=== PATIENT | female | born 2000 | race Caucasian/White ===

== ENCOUNTER → 2020-01-30 08:29 | Outpatient (BNVA) | payer MEDICAID, SELFPAY | PROVIDERS: Family Provider Pediatrics Adolescent Medicine; Visit Provider Nurse Practitioner Women's Health | DX: O36.80X0 Pregnancy with inconclusive fetal viability, not applicable or unspecified; E05.00 Thyrotoxicosis with diffuse goiter without thyrotoxic crisis or storm; N92.6 Irregular menstruation, unspecified; Z01.419 Encounter for gynecological examination (general) (routine) without abnormal findings | CPT/HCPCS: 81025 ==

== ENCOUNTER → 2020-02-01 16:15 | Outpatient (BNVA) | payer MEDICAID, SELFPAY | PROVIDERS: Family Provider Pediatrics Adolescent Medicine; Visit Provider Obstetrics & Gynecology | DX: O20.0 Threatened abortion (principal); O09.891 Supervision of other high risk pregnancies, first trimester; Z67.91 Unspecified blood type, Rh negative; Z3A.09 9 weeks gestation of pregnancy; O26.899 Other specified pregnancy related conditions, unspecified trimester | CPT/HCPCS: 86850; 86900 ==

== ENCOUNTER 2020-02-04 12:28 | Emergency (ER) | payer MEDICAID, SELFPAY ==
[2020-02-04 12:37] VITALS: BP 130/85; PULSE 133; RESP 18; TEMP 36.7; O2SAT 98
--- NOTE | 2020-02-04 12:45 | ED_ITS ---
HPI - General: Chief complaint: Vaginal Bleeding Stated complaint: 10 WEEKS PREG/BLEEDING Time Seen by Provider: 02/04/20 12:36 History of Present Illness: HPI Narrative: 19-year-old female at 10 weeks gestation presents complaining of vaginal bleeding. Patient was at [facility] on 02/03/2020 records were received from there she had a beta-hCG of 6997. She has [facility] a [facility] she had told me that they confirmed an intrauterine of room and look at her their notes they did a qualitative beta-hCG and a bedside ultrasound but did not have definitive conversation of intrauterine . She has been having regular bleeding although it has been decreased a little since she arrived here prior to arriving here she felt like it was actually getting a little worse. MD Complaint: vaginal bleeding Onset (ago): day(s) Pain Consistency: intermittent Location: pelvis Severity: moderate Quality: Cramping Relieving factors: none Exacerbating factors: none Vaginal discharge: none Vaginal bleeding: heavy care: followed by OB Associated symptoms: Deny dysuria, headache(s), malaise, nausea, rash, seizures, short of breath, syncope, vaginal discharge, visual changes, vomiting or weakness Review of Systems Const: Denies: malaise ENMT: Denies: throat pain, ear or mastoid pain, nasal discharge or nasal congestion Card: Denies: syncope Resp: Denies: dyspnea, productive cough or non-productive cough GI: Denies: nausea or vomiting : Denies: dysuria or vaginal discharge Skin/Breast: Denies: rash or pruritus Neuro: Denies: headache(s) PFSH ED PFSH: Medical History Anxiety with depression Graves disease No pertinent past medical history Denies: high blood pressure, diabetes, heart, lung, liver, kidney, bleeding problems, or clotting problems Tachycardia Surgical History No history of previous surgery Family History Denies family history of Colon cancer Ovarian cancer Diabetes Heart disease Hyperlipidemia Breast cancer Hypertension Uterine cancer Thyroid condition Stroke Social History Smoking and tobacco status: never smoked Alcohol intake: unknown Additional social history: - Tobacco Use: Denies current or past use Alcohol Use: Denies Drug Use: Denies Work/Study Status: Does not work or go to school Physical Exam Const: COMMON NORMALS: average body habitus, patient oriented x3 and alert GENERAL APPEARANCE: cooperative, comfortable, well kempt and well developed NUTRITIONAL APPEARANCE: obese ORIENTATION/CONSCIOUSNESS: Yes awake, Yes oriented to person and Yes oriented to place HENMT: COMMON NORMALS: normocephalic, atraumatic and EAC's normal HEAD & SCALP: normocephalic and atraumatic EXTERNAL AUDITORY CANAL: EAC's normal Eye: COMMON NORMALS: Equal, round and reactive pupils present, EOMs intact bilaterally, conjunctivae normal and no scleral icterus CONJUNCTIVA: Yes conjunctivae normal PUPIL: Yes Equal, round and reactive pupils present Neck/C-Spine: COMMON NORMALS: no meningeal signs Resp: COMMON NORMALS: normal respiratory effort, No retractions, No use of accessory muscles and clear to auscultation bilaterally AUSCULTATION: clear to auscultation bilaterally Cardio: COMMON NORMALS: regular rate and regular rhythm RATE: regular rate RHYTHM: regular rhythm HEART SOUNDS: no murmurs GI: COMMON NORMALS: Normal to inspection, nondistended, normoactive bowel sounds present, Soft to palpation and No hepatosplenomegaly present PALPATION: Yes Soft to palpation and Yes No hepatosplenomegaly present : COMMON NORMALS: Yes no CVA tenderness BLADDER/KIDNEY EXAM: Yes no CVA tenderness Back/Pelvis: COMMON NORMALS: no CVA tenderness LUMBAR SPINE/LOWER BACK: Yes normal to inspection Extremity: COMMON NORMALS: no clubbing, cyanosis or edema, no calf tenderness and no pedal edema Neuro: COMMON NORMALS: patient oriented x3 SENSORIUM/ORIENTATION: Yes alert, Yes oriented to person and Yes oriented to place MENINGEAL SIGNS: Yes no meningeal signs Psych: APPEARANCE: Yes well kempt Skin: COMMON NORMALS: no rashes or lesions noted and turgor normal GENERAL SKIN EXAM: no rashes or lesions noted and turgor normal Course Vital Signs: Vital signs: Vital Signs Temperature 98.0 F 02/04/20 12:37 Pulse Rate 100 02/04/20 16:01 Respiratory Rate 18 02/04/20 16:01 Blood Pressure 93/72 02/04/20 16:01 Pulse Oximetry 98 02/04/20 16:01 MDM - OB/Uterine Contractions MDM Narrative: Medical decision making narrative: Beta-hCG is decreasing substantially today from yesterday. Discussed ultrasound with radiology there is a significant amount of clot in the uterus no apparent POC nothing in the adnexa looks concerning for an ectopic. Will discharge patient home have her follow-up with her primary care doctor in the next few days if she has worsening bleeding return to the emergency room. She should have another beta-hCG by the end of the week. Lab Data: Labs: Lab Results 02/04/20 02/04/20 02/04/20 Range/Units 13:03 13:19 13:19 WBC 12.8 H (4.0-10.0) 10^3/ uL RBC 4.82 (4.1-5.3) 10^6/u L Hgb 13.5 (11.5-15.3) g/dL Hct 41.2 (37.0-47.0) % MCV 85.5 (81-99) fL MCH 28.0 (28.0-34.0) pg MCHC 32.8 (30.0-36.0) g/dL RDW 12.3 (12.1-15.1) % Plt Count 244 (130-400) 10^3/c mm MPV 10.8 H (7.4-10.4) fL Neut % (Auto) 84.4 % Lymph % (Auto) 9.9 % [place] % (Auto) 4.5 % Eos % (Auto) 0.5 % Baso % (Auto) 0.4 % Neut # (Auto) 10.79 H (1.8-7.7) 10^3/u L Lymph # (Auto) 1.3 (0.8-4.8) 10^3/u L [place] # (Auto) 0.6 (0.2-0.9) 10^3/u L Eos # (Auto) 0.1 (0.0-0.8) 10^3/u L Baso # (Auto) 0.1 (0.0-0.1) 10^3/u L Nucleated RBC % (a uto) 0 % Nucleated RBCs # 0.0 /100WBC Sodium 137 (136-145) mmol/L Potassium 4.1 (3.5-5.1) mmol/L Chloride 102 (98-107) mmol/L Carbon Dioxide 24 (22-29) mmol/L Anion Gap 15.1 (5-19) BUN 5 L (6-20) mg/dL Creatinine 0.7 (0.5-0.9) mg/dL GFR Calculation 105.6 (90-130) mL/min Glucose 104 (65-115) mg/dL Calculated Osmolal ity 280 L (285-295) mOsm/k g Calcium 9.7 (8.5-10.5) mg/dL Ser , Herminio i-Qnt 2274.00 mIU/mL Urine Color Red (Yellow) Urine Appearance Turbid (CLEAR) Urine pH 6.5 (5-7) Ur Specific Gravit y 1.010 (1.005-1.030) Urine Protein 3+ H (Negative) Urine Glucose (UA) Norm (Normal) Urine Ketones 1+ H (Negative) Urine Blood 3+ H (Negative) Urine Nitrate Negative (Negative) Urine Bilirubin Neg (NEGATIVE) Urine Urobilinogen 1 H (Negative) mg/dL Ur Leukocyte Betty ase 1+ H (Negative) Urine RBC Too numerous to c nt H (0-2) /hpf Urine WBC 5-10 H (0-5) /hpf Ur Squamous Epith Cells 0-4 H (0-5) Amorphous Sediment Not Reportable Urine Bacteria 2+ H (NONE) 02/04/20 Range/Units 14:25 WBC (4.0-10.0) 10^3/ uL RBC (4.1-5.3) 10^6/u L Hgb (11.5-15.3) g/dL Hct (37.0-47.0) % MCV (81-99) fL MCH (28.0-34.0) pg MCHC (30.0-36.0) g/dL RDW (12.1-15.1) % Plt Count (130-400) 10^3/c mm MPV (7.4-10.4) fL Neut % (Auto) % Lymph % (Auto) % [place] % (Auto) % Eos % (Auto) % Baso % (Auto) % Neut # (Auto) (1.8-7.7) 10^3/u L Lymph # (Auto) (0.8-4.8) 10^3/u L [place] # (Auto) (0.2-0.9) 10^3/u L Eos # (Auto) (0.0-0.8) 10^3/u L Baso # (Auto) (0.0-0.1) 10^3/u L Nucleated RBC % (a uto) % Nucleated RBCs # /100WBC Sodium (136-145) mmol/L Potassium (3.5-5.1) mmol/L Chloride (98-107) mmol/L Carbon Dioxide (22-29) mmol/L Anion Gap (5-19) BUN (6-20) mg/dL Creatinine (0.5-0.9) mg/dL GFR Calculation (90-130) mL/min Glucose (65-115) mg/dL Calculated Osmolal ity (285-295) mOsm/k g Calcium (8.5-10.5) mg/dL Ser , Herminio i-Qnt mIU/mL Urine Color Yellow (Yellow) Urine Appearance Clear (CLEAR) Urine pH 7 (5-7) Ur Specific Gravit y 1.000 L (1.005-1.030) Urine Protein Neg (Negative) Urine Glucose (UA) Norm (Normal) Urine Ketones Negative (Negative) Urine Blood Neg (Negative) Urine Nitrate Negative (Negative) Urine Bilirubin Neg (NEGATIVE) Urine Urobilinogen Norm (Negative) mg/dL Ur Leukocyte Betty ase Negative (Negative) Urine RBC (0-2) /hpf Urine WBC (0-5) /hpf Ur Squamous Epith Cells (0-5) Amorphous Sediment Urine Bacteria (NONE) Discharge Plan Discharge Patient Disposition: Home Clinical Impression: Incomplete Condition: Stable Prescriptions: New hydrocodone-acetaminophen 5-325 mg tablet 1 tab PO Q6H PRN (Reason: pain) Qty: 15 RF: 0 diclofenac sodium 75 mg tablet,delayed release (DR/EC) 75 mg PO Q12H PRN (Reason: pain) Qty: 20 RF: 0 Discharge Orders: Discharge Order (Routine); Ordered 02/04/20 Ordered By: Hector Anderson Referrals: Ozzie Banuelos MD [Physician] - Discharge Diet: Usual diet Discharge Activity: Increase activity as tolerated Activity Restrictions/Additional Instructions: Follow-up with Dr. Sanders towards the end of this week. Discharge Date/Time: 02/04/20 16:02 Coding Level of Care Code ED Dye Stand Loader for Tom Shafer
[2020-02-04 12:56] VITALS: BP 130/95; PULSE 100; RESP 16; O2SAT 97
[2020-02-04] MEDS: HYDROcodone-acetaminophen 5-325 mg Tablet 2 TAB PO (13:06)
--- NOTE | 2020-02-04 13:11 | PC.NURSE ---
Read and agree with assessment
[2020-02-04 13:30] LABS: Basophils # 0.1 10^3/uL (0.0-0.1); Basophils % 0.4 %; Eosinophils # 0.1 10^3/uL (0.0-0.8); Eosinophils % 0.5 %; Hematocrit 41.2 % (37.0-47.0); Hemoglobin 13.5 g/dL (11.5-15.3); Lymphocytes # 1.3 10^3/uL (0.8-4.8); Lymphocytes % 9.9 %; Mean Corpuscular HGB Conc 32.8 g/dL (30.0-36.0); Mean Corpuscular Volume 85.5 fL (81-99); Mean Platelet Volume 10.8 fL (7.4-10.4); Monocytes # 0.6 10^3/uL (0.2-0.9); Monocytes % 4.5 %; Neutrophils # 10.79 10^3/uL (1.8-7.7); Neutrophils % 84.4 %; Nucleated Red Blood Cells % 0 %; Platelet Count 244 10^3/cmm (130-400); Red Blood Count 4.82 10^6/uL (4.1-5.3); Red Cell Distribution Width 12.3 % (12.1-15.1); White Blood Count 12.8 10^3/uL (4.0-10.0)
[2020-02-04 14:02] LABS: Anion Gap 15.1 (5-19); Blood Urea Nitrogen 5 mg/dL (6-20); Calcium 9.7 mg/dL (8.5-10.5); Carbon Dioxide 24 mmol/L (22-29); Chloride 102 mmol/L (98-107); Glomerular Filtration Rate 105.6 mL/min (90-130); Glucose 104 mg/dL (65-115); Osmolality Calculated 280 mOsm/kg (285-295); Potassium 4.1 mmol/L (3.5-5.1); Sodium 137 mmol/L (136-145)
[2020-02-04 14:07] VITALS: BP 125/87; PULSE 93; RESP 17; O2SAT 95
[2020-02-04 14:19] LABS: Add Urine Microscopic? YES; Bilirubin Urine Neg (NEGATIVE); Blood Urine 3+ (Negative); Glucose Urine UA Norm (Normal); Ketones Urine 1+ (Negative); Leukocyte Esterase Urine 1+ (Negative); Nitrate Urine Negative (Negative); Protein Urine 3+ (Negative); Urine Appearance Turbid (CLEAR); Urine Color Red (Yellow); Urobilinogen Urine 1 mg/dL (Negative); pH Urine 6.5 (5-7)
[2020-02-04 14:21] LABS: Add Urine Culture? Yes; Bacteria Urine 2+; RBC Urine TOO NUMEROUS TO CNT /hpf (0-2); Squamous Epithelial Cell Urine 0-4 (0-5)
[2020-02-04 14:35] LABS: Add Urine Microscopic? NO
[2020-02-04 14:49] LABS: Bilirubin Urine Neg (NEGATIVE); Blood Urine Neg (Negative); Glucose Urine UA Norm (Normal); Ketones Urine Negative (Negative); Leukocyte Esterase Urine Negative (Negative); Nitrate Urine Negative (Negative); Protein Urine Neg (Negative); Urine Appearance Clear (CLEAR); Urine Color Yellow (Yellow); Urobilinogen Urine Norm (Negative); pH Urine 7 (5-7)
--- NOTE | 2020-02-04 14:57 | US_ITS ---
WS: [id number] TRANSABDOMINAL PELVIC ULTRASOUND HISTORY: confirm intrauterine COMPARISON: None available. Uterus: 11.2 cm x 4.2 cm x 6.6 cm. Enlarged heterogeneous uterus. Abnormal within the central uterus. Endometrium: Abnormal endometrial canal. There is thickened heterogeneous appearance within the endom etrium. There is also fluid along the lower endometrial canal. Endometrial thickness is measures up t o 4 cm. On several images there may be small cystic areas present. Neither ovary is definitely identified. No free fluid in the cul-de-sac. US/US pelvic complete* [id number] IMPRESSION: 1. Abnormal endometrium. No intrauterine gestation. 2. Markedly thickened endometrium with fluid along the lower endocervical canal . Correlate for possible gestational trophoblastic disease. Evaluate for marked ly elevated beta hCG level. Differential would include blood products from a sp ontaneous . Notified Hector Anderson DO at 02/04/2020 4:18 PM.
[2020-02-04 15:41] VITALS: BP 93/72; PULSE 74; RESP 20; O2SAT 94
[2020-02-04 16:01] VITALS: BP 93/72; PULSE 100; RESP 18; O2SAT 98
== END 2020-02-04 16:02 | disposition home or self-care (01) ==
PROVIDERS: Emergency Provider Family Medicine; PCP Pediatrics Adolescent Medicine
DX: O03.4 Incomplete spontaneous abortion without complication (principal); E05.00 Thyrotoxicosis with diffuse goiter without thyrotoxic crisis or storm
CPT/HCPCS: 12345; 76856; 80048; 81001; 81003; 84702; 85025; 87086; 99282; 99283

== ENCOUNTER → 2020-02-07 10:41 | Outpatient (BNVA) | payer MEDICAID, SELFPAY | PROVIDERS: PCP Pediatrics Adolescent Medicine; Visit Provider Obstetrics & Gynecology | DX: O03.4 Incomplete spontaneous abortion without complication (principal) | CPT/HCPCS: 84702 ==

== ENCOUNTER → 2020-02-15 10:56 | Outpatient (BNVA) | payer MEDICAID, SELFPAY | PROVIDERS: PCP Pediatrics Adolescent Medicine; Visit Provider Nurse Practitioner Family | DX: E05.00 Thyrotoxicosis with diffuse goiter without thyrotoxic crisis or storm (principal) | CPT/HCPCS: 36415; 80053; 80061; 81003; 82306; 83036; 83735; 84100; 84443; 84702; 85025 ==

== ENCOUNTER 2020-05-26 08:21 | Outpatient (CLI) | payer MEDICAID, SELFPAY ==
--- NOTE | 2020-05-26 08:27 | US_ITS ---
WS: [id number] EARLY OBSTETRICAL ULTRASOUND (<14 WEEKS). HISTORY: UNABLE TO HEAR HEART TONES COMPARISON: None available. Single intrauterine gestational sac is identified. Cardiac activity at 160 BPM. M[place]-rump length dimitri sures 1.5 cm which corresponds to a gestation of 7w6d. The yolk sac is normal size but the shape is s lightly irregular in the wall of the yolk sac is slightly thickened and asymmetric. No subchorionic h emorrhage. No free fluid. LEFT ovary measures 2.6 x 2.3 x 2.0 cm. LEFT ovary contains a corpus luteum of measuring 1. 7 x 1.10 cm. RIGHT ovary is normal. US/US OB <=14 wk fetus w transvag IMPRESSION: 1. Single intrauterine gestation of 7 weeks 6 days with an EDC of 01/06/2021. 2. Yolk sac is slightly irregular. Significance is uncertain at this time. 3. Normal cardiac activity.
== END 2020-05-26 08:22 | disposition home or self-care (01) ==
LOC: RAD 08:26
PROVIDERS: PCP Family Medicine; Visit Provider Family Medicine
DX: O36.8310 Maternal care for abnormalities of the fetal heart rate or rhythm, first trimester, not applicable or unspecified (principal); Z3A.01 Less than 8 weeks gestation of pregnancy
CPT/HCPCS: 76801; 76817

== ENCOUNTER → 2020-10-06 11:23 | Outpatient (BNVA) | payer BC, MEDICAID, SELFPAY | PROVIDERS: PCP Family Medicine; Visit Provider Nurse Practitioner Family | DX: J06.9 Acute upper respiratory infection, unspecified (principal); Z20.822 Contact with and (suspected) exposure to COVID-19 | CPT/HCPCS: 87635 ==

== ENCOUNTER → 2020-10-17 10:54 | Day surgery (SDC) | payer BC, MEDICAID, SELFPAY ==
[2020-10-17 13:30] VITALS: BP 130/88; PULSE 95; RESP 18; TEMP 36.5; O2SAT 100
[2020-10-17 13:43] VITALS: BP 130/88; RESP 18; TEMP 36.5; O2SAT 100
== END ==
PROVIDERS: PCP Family Medicine; Visit Provider Family Medicine
DX: O26.892 Other specified pregnancy related conditions, second trimester (principal); Z67.91 Unspecified blood type, Rh negative; Z3A.00 Weeks of gestation of pregnancy not specified
CPT/HCPCS: 36415; 36430; 86850; 86900; 90384

== ENCOUNTER → 2020-12-03 14:35 | Outpatient (BNVA) | payer BC, MEDICAID, SELFPAY | PROVIDERS: PCP Family Medicine; Visit Provider Nurse Practitioner Family | DX: Z20.2 Contact with and (suspected) exposure to infections with a predominantly sexual mode of transmission (principal); R05 Cough; Z20.822 Contact with and (suspected) exposure to COVID-19 | CPT/HCPCS: 87635 ==

== ENCOUNTER 2021-01-05 20:39 | Inpatient (IN) | payer BC, MEDICAID, SELFPAY ==
[2021-01-05] VITALS (10 sets, daily range): BP systolic 115–146; BP diastolic 73–84; PULSE 84–110; RESP 16–17; TEMP 36.9; BMI 25.8
[2021-01-05 21:34] LABS: Basophils # 0.1 10^3/uL (0.0-0.1); Basophils % 0.3 %; Eosinophils # 0.1 10^3/uL (0.0-0.8); Eosinophils % 0.5 %; Hematocrit 39.7 % (37.0-47.0); Hemoglobin 12.6 g/dL (11.5-15.3); Lymphocytes # 2.9 10^3/uL (0.8-4.8); Lymphocytes % 17.7 %; Mean Corpuscular HGB Conc 31.7 g/dL (30.0-36.0); Mean Corpuscular Hemoglobin 25.1 pg (28.0-34.0); Mean Corpuscular Volume 79.1 fL (81-99); Mean Platelet Volume 11.8 fL (7.4-10.4); Monocytes # 0.9 10^3/uL (0.2-0.9); Monocytes % 5.3 %; Neutrophils # 12.24 10^3/uL (1.8-7.7); Neutrophils % 75.8 %; Nucleated Red Blood Cells % 0 %; Platelet Count 278 10^3/cmm (130-400); Red Blood Count 5.02 10^6/uL (4.1-5.3); Red Cell Distribution Width 15.3 % (12.1-15.1); White Blood Count 16.1 10^3/uL (4.0-10.0)
[2021-01-05] MEDS: dextrose 5%-lactated ringers 1,000 ML 125 ML IV (21:40)
[2021-01-05] MEDS: ampicillin 2,000 MG in sodium chloride 0.9% (plus) 50 ML 100 MG IV (21:41)
[2021-01-05] MEDS: lactated ringers 1,000 ML 999 ML IV (22:44)
[2021-01-05] MEDS: fentaNYL 50 mcg/mL INJ 2mL IVP (23:59)
[2021-01-06] VITALS (86 sets, daily range): BP systolic 95–164; BP diastolic 55–104; PULSE 72–171; RESP 17; TEMP 35.9–36.3; O2SAT 84–100
--- NOTE | 2021-01-06 00:05 | ANES.PREANE2 ---
Pre-Anesthetic Assessment Pre-Anesthetic Assessment: Height/Weight: Height 1.73 m Weight 77.111 kg Temp Pulse Resp BP Pulse Ox 98.4 F 108 H 16 133/79 100 01/05/21 18:29 01/06/21 01:03 01/05/21 23:59 01/06/21 01:03 01/06/21 01:03 Preop Diagnosis: IUP Proposed Procedure: labor epidural Was Beta Claritza taken within 24 hours: N/A Was Clonidine taken within 24 hours: N/A Social: Social History: No alcohol and No tobacco Exam: Pre-Anes Outpt Exam: alert, oriented x 3, clear to auscultation bilaterally and regular rate & rhythm Airway: Submandibular: WNL Cervical ROM: WNL MP: 2 History/ROS: No significant history except as noted Pulmonary: Pulmonary: None reported CV/HEM: CV/HEM: None reported : : None reported Hepatic: Hepatic: None reported GI: GI: GERD Metabolic: Metabolic: None reported Musc/skel: Musc/skel: Lower Back Pain Neuropsych: Neuropsych: None reported Anesthetic Plan: ASA status: 1 Anesthesia: Anesthesia Evaluation Risk of > 500 ml blood loss (7ml/kg in children): No Meds/Allergies Current Medications: Current Medications Generic Name Dose Route Start Last Admin Trade Name Freq PRN Reason Stop Dose Admin Fentanyl 25 - 100 mcg 01/05/21 20:38 01/05/21 23:59 Fentanyl 50 Mcg/ Ml Inj 2ml IVP 25 mcg Q1H PRN Administration SEVERE PAIN Dextrose/Lactated Ringer's 1,000 mls @ 125 m ls/hr 01/05/21 20:38 01/05/21 21:40 Dextrose 5%-Lact ated Ringers IV 125 mls/hr .Q8H PRN Administration labor Lactated Ringer's 1,000 mls @ 999 m ls/hr 01/05/21 20:38 01/05/21 22:44 Lactated Ringers IV 999 mls/hr .Q1H1M PRN Administration Per L&D Rescitati on Protocol PFSH Anesthesia PFSH: Medical History (Updated 12/08/20 @ 22:24 by BILL Renteria) Anxiety with depression Cough Depression Graves disease Hypertension screen Lower respiratory infection Medication management Migraine No pertinent past medical history Denies: high blood pressure, diabetes, heart, lung, liver, kidney, bleeding problems, or clotting problems Tachycardia Upper respiratory infection due to josé miguel influenza virus Vitamin D deficiency Surgical History No history of previous surgery Family History Denies family history of Colon cancer Ovarian cancer Diabetes Heart disease Hyperlipidemia Breast cancer Hypertension Uterine cancer Thyroid condition Stroke Social History Smoking and tobacco status: never smoked Alcohol intake: unknown Additional social history: - Tobacco Use: Denies current or past use Alcohol Use: Denies Drug Use: Denies Work/Study Status: Does not work or go to school Female Reproductive History: : 3 Data Anesthesia CBC & Chem 7: 01/05/21 21:17 Other Labs: Laboratory Results - last 48 hr 01/05/21 21:17 WBC 16.1 H RBC 5.02 Hgb 12.6 Hct 39.7 MCV 79.1 L MCH 25.1 L MCHC 31.7 RDW 15.3 H Plt Count 278 MPV 11.8 H Neut % (Auto) 75.8 Lymph % (Auto) 17.7 [place] % (Auto) 5.3 Eos % (Auto) 0.5 Baso % (Auto) 0.3 Neut # (Auto) 12.24 H Lymph # (Auto) 2.9 Sebastian # (Auto) 0.9 Eos # (Auto) 0.1 Baso # (Auto) 0.1 Nucleated RBC % (auto) 0 Nucleated RBCs # 0.0 Cardiac Studies: No Data to Display
--- NOTE | 2021-01-06 01:07 | ANES.PROC ---
Anesthesia Procedures Procedure/Date: 01/06/21 Epidural: Time Out Performed: Yes Consents Signed: Procedure Consent Consent: requested by attending/covering physician Lumbar Level: L3-L4 Epidural position: sitting Epidural procedure: sterile prep of area, 1% lidocaine to numb the area, 18 g needle, negative for paresthesia passed, neg for paresthesia, test dose given, 1.5% xylocaine 1:200k epi (3ml), placed PCEA, no systemic response, sterile dressing applied, L.U.D. no apparent complications and 0.2% Ropiavacaine @ mls/hr (13) Additional Comments: attempt x3; difficulty getting BARBRA
[2021-01-06] MEDS: ampicillin 1,000 MG in sodium chloride 0.9% (plus) 50 ML 100 MG IV (01:45)
[2021-01-06] MEDS: ondansetron 2 mg/ML SDV 2 mL 4 MG IVP (03:43)
[2021-01-06] MEDS: miSOPROStol 200 mcg Tablet 800 MCG PR (06:45)
--- NOTE | 2021-01-06 07:03 | PM.DELIVERY ---
Delivery Note: Date of delivery: January 06, 2021 Pre-Delivery Course: The patient had routine care at [facility]. There were no complications during the . She was GBS positive and received 3 doses of ampicillin prior to delivery. Rupture of membranes was meconium stained fluid. Delivery: This is a 20-year-old G 3P1 at 39 weeks 6 days gestation who presented to labor and delivery in active labor. She received an epidural for pain management. She had a normal spontaneous vaginal delivery of a viable male infant weight 3280 g, 7 pounds 4 ounces, Apgars 8 and 9 over an intact perineum. The was suctioned at delivery and placed on the mother's chest. The cord was clamped and cut. The placenta was delivered grossly intact and normal to inspection. There were no lacerations. Mother had some uterine atony that was treated with 800 mcg of Cytotec. Mother and were doing well after delivery. A&P Assessment and plan (1) (normal spontaneous vaginal delivery): Routine care Status: Acute Coding Level of Care Code Acute Dental Ceramist Helper for Chg Fwd Diagnoses (normal spontaneous vaginal delivery) O80
[2021-01-06] MEDS: acetaminophen 325 mg Tablet 650 MG PO (07:16)
[2021-01-06] MEDS: oxytocin 30 UNIT/500 ML BAG 600 UNIT IV (09:06)
[2021-01-06] MEDS: prenatal vitamin Capsule 1 CAP PO (09:58)
[2021-01-06] MEDS: docusate sodium 100 mg Capsule PO ×2 (09:58→17:49)
[2021-01-06] MEDS: ibuprofen 800 mg tablet PO ×3 (09:58→21:30)
[2021-01-06 16:21] LABS: Coronavirus Test Green County Not Detected
[2021-01-06 19:33] LABS: Hematocrit 35.7 % (37.0-47.0); Hemoglobin 11.2 g/dL (11.5-15.3); Mean Corpuscular HGB Conc 31.4 g/dL (30.0-36.0); Mean Corpuscular Volume 79.7 fL (81-99); Mean Platelet Volume 11.7 fL (7.4-10.4); Platelet Count 229 10^3/cmm (130-400); Red Blood Count 4.48 10^6/uL (4.1-5.3); Red Cell Distribution Width 15.6 % (12.1-15.1); White Blood Count 15.5 10^3/uL (4.0-10.0)
[2021-01-06] MEDS: lanolin oint 7 gm 1 APPLIC TOPICAL (22:48)
[2021-01-07] VITALS (8 sets, daily range): BP systolic 108–117; BP diastolic 61–68; PULSE 78–89; RESP 16; TEMP 26.3–36.4; O2SAT 99–100
[2021-01-07] MEDS: benzocaine-menthol 78 gm Canister 1 SPRAY TOPICAL (09:18)
[2021-01-07] MEDS: docusate sodium 100 mg Capsule PO ×2 (09:19→18:07)
[2021-01-07] MEDS: ibuprofen 800 mg tablet PO ×3 (09:19→20:56)
[2021-01-07] MEDS: prenatal vitamin Capsule 1 CAP PO (09:19)
--- NOTE | 2021-01-07 13:28 | ANE.PACU2 ---
Inpatient post-anesthesia follow up: Airway intact: Yes Vital signs: Temperature 97.5 F Pulse Rate 80 Respiratory Rate 16 Blood Pressure 110/68 Pulse Oximetry 99 Oxygen Delivery Me thod Room Air Oxygen Flow Rate Fraction of Inspir ed Oxygen Hydration adequate: Yes Nausea and vomiting: No Pain level: 2 Mental status: Baseline
--- NOTE | 2021-01-07 17:54 | P.PN_ITS ---
CARDIOVASCULAR TECH Subjective Subjective: Interval history: She had nausea earlier in the day that was relieved with Zofran. She is tolerating a regular diet, has average vaginal bleeding and is feeling well. Labor: Station: +3 Amniotic Membrane Status: Ruptured Monitor Mode: External Contraction Pattern: Regular Vitals/I&O/Wt Last Vital Signs Temp 97.4 F L 01/07/21 16:44 Pulse 78 01/07/21 16:44 Resp 16 01/07/21 16:44 BP 108/66 01/07/21 16:44 Pulse Ox 100 01/07/21 16:44 01/07/21 01/07/21 01/07/21 06:59 14:59 22:59 Intake Total 500 / 500 Balance 500 / 500 Weight last 48 hrs Weight 77.111 kg Physical Exam Narrative: EXAM NARRATIVE: Alert and oriented, no acute distress, sitting up eating dinner. Abdomen is soft and nontender. Fundus is firm and U- 3. No calf tenderness, no pedal edema. Urinary Catheter Management^: Ni Latex: Cath Placed During This Visit: yes Urinary Catheter Date of Insertion: 01/06/21 Urinary Catheter Time of Insertion: 01:30 Data : 01/06/21 18:50 A&P Assessment and plan (1) (normal spontaneous vaginal delivery): Routine care Status: Acute Attestations Medical Necessity Statement*: Routine care Coding Level of Care Code Acute Director Microbiology for Chg Fwd Diagnoses (normal spontaneous vaginal delivery) O80
[2021-01-08 04:30] VITALS: BP 107/67; PULSE 86
--- NOTE | 2021-01-08 09:12 | PM.DCS ---
Discharge Providers Date of Admission: 01/05/21 20:39 Date of Discharge: January 08, 2021 Attending Provider at Admission: Karen Mackay MD Attending Provider at Discharge: Karen Mackay MD Primary Care Provider: Karen Mackay MD Diagnoses at Discharge Discharge Diagnosis (1) (normal spontaneous vaginal delivery): Status: Acute Reason for Visit Reason for Visit: VAGINAL DISCHARGE AND CONTRACTIONS Hospital Course Hospital Course This is a 20-year-old G3 now P2 who was admitted in active labor. She had an uncomplicated normal spontaneous vaginal delivery of a viable male infant. Mother did well after delivery. She had minimal vaginal bleeding no pain and was requesting discharge home. Physical Exam Narrative: EXAM NARRATIVE: Alert and oriented, no acute distress abdomen soft, fundus is firm and U- 2, fundus is nontender, extremities have no edema and no calf tenderness Urinary Catheter Management^: Ni Latex: Cath Placed During This Visit: yes Urinary Catheter Date of Insertion: 01/06/21 Urinary Catheter Time of Insertion: 01:30 Discharge Data Data Completed and Pending: Labs from last 24 hours 01/05/21 21:17 Blood Type O Negative Rho(D) Type Negative / 0 Antibody Screen Negative Vitals: Last Vital Signs Temp 97.4 F L 01/07/21 16:44 Pulse 86 01/08/21 04:30 Resp 16 01/07/21 16:44 BP 107/67 01/08/21 04:30 Pulse Ox 100 01/07/21 16:44 Discharge Plan Discharge Patient Disposition: Home Condition: Stable Prescriptions: Continued prenat.vits,patricia,[id number] Tablet 1 tab PO DAILY RF: 0 levalbuterol tartrate [Xopenex HFA] 45 mcg/actuation HFA aerosol inhaler 1 - 2 inh inhalation Q4H PRN (Reason: shortness of breath) 30 Days Qty: 15 RF: 5 promethazine-DM 6.25-15 mg/5 mL syrup 5 ml PO .q4-6hrs PRN (Reason: cough) 14 Days Qty: 118 RF: 0 montelukast 10 mg tablet 10 mg PO DAILY 14 Days Qty: 14 RF: 0 Discharge Orders: Discharge Order (Routine); Ordered 01/08/21 Ordered By: Karen Mackay Referrals: Mackay,Karen Nati, MD [Primary Care Provider] - 1 month Discharge Diet: Usual diet Discharge Activity: Limit activity as instructed Patient Instructions: Depression (GEN), Pre-eclampsia and Eclampsia (DC), Bleeding (DC), OB Discharge Report, OB Food/Drug Interaction Guide, Opioid Safety, OB Home Care, OB [facility] Parent Packet, OB Vaginal Deliveries Discharge Attestations Time Spent in Discharge Care*: less than 30 min Quality Metrics Clinical Quality Measures During this hospital stay, did patient experience: None Coding Level of Care Code Acute Chg FW DC note Diagnoses (normal spontaneous vaginal delivery) O80
[2021-01-08] MEDS: prenatal vitamin Capsule 1 CAP PO (09:25)
[2021-01-08] MEDS: docusate sodium 100 mg Capsule PO (09:25)
[2021-01-08] MEDS: ibuprofen 800 mg tablet PO (09:25)
[2021-01-08 09:43] VITALS: BP 118/72; PULSE 83
[2021-01-08 09:45] VITALS: RESP 16; TEMP 36.7; O2SAT 99
== END 2021-01-08 10:45 | disposition home or self-care (01) | DRG 807 ==
LOC: OPOB 21:19 → OBGYN 21:19
PROVIDERS: Admitting Provider Family Medicine; PCP Family Medicine; Visit Provider Family Medicine
DX: O99.824 Streptococcus B carrier state complicating childbirth (principal); Z37.0 Single live birth; O77.0 Labor and delivery complicated by meconium in amniotic fluid; O75.89 Other specified complications of labor and delivery; O99.62 Diseases of the digestive system complicating childbirth; K21.9 Gastro-esophageal reflux disease without esophagitis; O90.89 Other complications of the puerperium, not elsewhere classified; R11.0 Nausea; Z3A.39 39 weeks gestation of pregnancy; Z87.59 Personal history of other complications of pregnancy, childbirth and the puerperium
CPT/HCPCS: 36415; 51702; 59025; 59409; 83986; 85025; 85027; 85460; 86850; 86900; 87635; 90384; 96374; 96375; 98960; 99211; J0290; J2405; J2795; J3010

== ENCOUNTER → 2021-08-05 11:33 | Outpatient (BNVA) | payer BC, MEDICAID, SELFPAY | PROVIDERS: PCP Family Medicine; Visit Provider Nurse Practitioner Family | DX: J09.X2 Influenza due to identified novel influenza A virus with other respiratory manifestations (principal) | CPT/HCPCS: 87400 ==

== ENCOUNTER → 2022-08-10 13:22 | Outpatient (BNVA) | payer BC, MEDICAID, SELFPAY | PROVIDERS: PCP Family Medicine; Visit Provider Nurse Practitioner | DX: J20.9 Acute bronchitis, unspecified (principal) | CPT/HCPCS: 87400; 87426 ==

== ENCOUNTER → 2022-08-27 09:42 | Outpatient (BNVA) | payer BC, MEDICAID, SELFPAY | PROVIDERS: PCP Family Medicine; Visit Provider Nurse Practitioner | DX: N92.6 Irregular menstruation, unspecified (principal) | CPT/HCPCS: 82670; 85025 ==

== ENCOUNTER → 2022-08-31 11:20 | Outpatient (BNVA) | payer BC, MEDICAID, SELFPAY | PROVIDERS: PCP Family Medicine; Visit Provider Nurse Practitioner | DX: N92.6 Irregular menstruation, unspecified (principal) | CPT/HCPCS: 82533; 84144 ==

== ENCOUNTER 2022-10-01 12:52 | Outpatient (CLI) | payer BC, MEDICAID, SELFPAY ==
--- NOTE | 2022-10-01 13:00 | US_ITS ---
WS: [id number] US transvaginal [id number] HISTORY: irregular menses COMPARISON: None available. Uterus: 8.1 cm x 4.5 cm x 3.6 cm. Normal size retroverted uterus. No fibroid or mass identified. Endometrium: 0.7 cm. Normal homogeneous endometrium. No increased vascularity and no mass. Right ovary: 2.7 cm x 1.8 cm x 1.8 cm. Normal size and vascularity, no cystic or solid masses. Left ovary: 2.9 cm x 1.9 cm x 2.0 cm. Normal size and vascularity, no cystic or solid masses. Dominan t follicle 1.3 x 1.2 x 1.3 cm. Small amount of free fluid in the pelvis, slightly more than physiologic. May be due to recent ruptur ed cyst. US/US transvaginal [id number] IMPRESSION: 1. Normal endometrium. 2. Small amount of free fluid, slightly more than physiologic. 3. Normal uterus.
== END 2022-10-01 12:53 | disposition home or self-care (01) ==
LOC: RAD 12:54
PROVIDERS: PCP Family Medicine; Visit Provider Nurse Practitioner
DX: N93.9 Abnormal uterine and vaginal bleeding, unspecified (principal)
CPT/HCPCS: 76830

== ENCOUNTER → 2023-05-10 10:34 | Outpatient (BNVA) | payer BC, MEDICAID, SELFPAY | PROVIDERS: PCP Family Medicine; Visit Provider Nurse Practitioner Family | DX: G43.909 Migraine, unspecified, not intractable, without status migrainosus (principal); F41.1 Generalized anxiety disorder; F32.9 Major depressive disorder, single episode, unspecified; Z79.899 Other long term (current) drug therapy; Z13.6 Encounter for screening for cardiovascular disorders; E55.9 Vitamin D deficiency, unspecified | CPT/HCPCS: 80053; 80061; 81003; 82306; 83036; 84439; 84443; 84481; 85025 ==

== ENCOUNTER → 2023-09-14 08:30 | Outpatient (BNVA) | payer BC, MEDICAID, SELFPAY | PROVIDERS: PCP Family Medicine; Visit Provider Nurse Practitioner Family | DX: N39.0 Urinary tract infection, site not specified (principal); R31.9 Hematuria, unspecified | CPT/HCPCS: 81003; 87077; 87086; 87184 ==

== ENCOUNTER → 2023-09-20 08:48 | Outpatient (BNVA) | payer BC, MEDICAID, SELFPAY | PROVIDERS: PCP Nurse Practitioner Family; Visit Provider Nurse Practitioner Family | DX: R31.9 Hematuria, unspecified (principal) | CPT/HCPCS: 81000; 87086; 88112 ==

== ENCOUNTER → 2023-09-28 09:13 | Outpatient (BNVA) | payer BC, MEDICAID, SELFPAY | PROVIDERS: PCP Nurse Practitioner Family; Visit Provider Nurse Practitioner Family | DX: R10.9 Unspecified abdominal pain (principal) | CPT/HCPCS: 74018; 81000 ==

== ENCOUNTER → 2024-01-03 11:19 | Outpatient (BNVA) | payer BC, MEDICAID, SELFPAY | PROVIDERS: PCP Nurse Practitioner Family; Visit Provider Nurse Practitioner Family | DX: S69.92XA Unspecified injury of left wrist, hand and finger(s), initial encounter (principal); M67.432 Ganglion, left wrist; X58.XXXA Exposure to other specified factors, initial encounter | CPT/HCPCS: 73110 ==

== ENCOUNTER → 2024-01-11 14:15 | Outpatient (BNVA) | payer MEDICAID, SELFPAY | PROVIDERS: PCP Nurse Practitioner Family; Visit Provider Nurse Practitioner | DX: M67.432 Ganglion, left wrist (principal) | CPT/HCPCS: 73110 ==

== ENCOUNTER → 2024-06-12 15:44 | Outpatient (BNVA) | payer MEDICAID, SELFPAY | PROVIDERS: PCP Nurse Practitioner Family; Visit Provider Nurse Practitioner Family | DX: F41.9 Anxiety disorder, unspecified (principal); F32.81 Premenstrual dysphoric disorder; F41.1 Generalized anxiety disorder; F33.0 Major depressive disorder, recurrent, mild; E55.9 Vitamin D deficiency, unspecified; N92.0 Excessive and frequent menstruation with regular cycle; Z79.899 Other long term (current) drug therapy; R10.2 Pelvic and perineal pain; N92.6 Irregular menstruation, unspecified; E04.1 Nontoxic single thyroid nodule | CPT/HCPCS: 80053; 80061; 81003; 82306; 82670; 83036; 83516; 84144; 84439; 84443; 85025; 86376 ==

== ENCOUNTER 2024-06-26 12:31 | Outpatient (CLI) | payer MEDICAID, SELFPAY ==
--- NOTE | 2024-06-26 13:30 | US_ITS ---
WS: [id number] US pelv w/transvag [id number] HISTORY: R10.2 - Pelvic and perineal pain COMPARISON: 10/01/2022 Uterus: 11.8 cm x 5.2 cm x 4.8 cm. Uterus is normal size and very slightly retroflexed. No mass or fibroid identified. Endometrium: 1.8 cm. Normal. There is a tiny amount of fluid along the endometrial canal. Right ovary: 3.5 cm x 2.5 cm x 2.4 cm. Normal size and vascularity, no cystic or solid masses. Small ovarian follicles. Left ovary: 3.7 cm x 3.0 cm x 2.8 cm. Normal size and vascularity, no cystic or solid masses. Small o varian follicles. No free fluid in the cul-de-sac. US/US pelvic complete* [id number] IMPRESSION: 1. Slightly retroflexed uterus. Otherwise normal. 2. No ovarian cyst or mass. 3. Patient declined transvaginal imaging.
--- NOTE | 2024-06-26 14:15 | US_ITS ---
WS: [id number] THYROID ULTRASOUND HISTORY: E04.1 - Nontoxic single thyroid nodule COMPARISON: 11/23/2018 Right lobe: 1.4 cm x 1.3 cm x 4.4 cm (w x ap x l). Volume: 3.8 cm3. Low normal sized gland with heterogeneity and diffuse tiny cysts or colloid nodules. No mass or incre ased vascularity. Left lobe: 1.4 cm x 1.2 cm x 4.0 cm (w x ap x l). Volume: 3.1 cm3. Normal sized gland with heterogeneity and a few small colloid cysts. No mass or nodule. No increased vascularity. Isthmus: 0.2 cm. No cervical chain adenopathy. US/US thyroid [id number] IMPRESSION: 1. No thyroid nodule. No increased vascularity. 2. Heterogeneous and small caliber thyroid gland.
== END 2024-06-26 12:32 | disposition home or self-care (01) ==
LOC: RAD 12:32
PROVIDERS: PCP Nurse Practitioner Family; Visit Provider Nurse Practitioner Family
DX: R10.2 Pelvic and perineal pain; E04.1 Nontoxic single thyroid nodule
CPT/HCPCS: 76536; 76830; 76856

== ENCOUNTER → 2024-07-05 15:07 | Outpatient (BNVA) | payer MEDICAID, SELFPAY | PROVIDERS: PCP Nurse Practitioner Family; Visit Provider Nurse Practitioner Family | DX: S93.402A Sprain of unspecified ligament of left ankle, initial encounter; X58.XXXA Exposure to other specified factors, initial encounter | CPT/HCPCS: 73630 ==

== ENCOUNTER → 2024-09-18 12:11 | Outpatient (BNVA) | payer MEDICAID, SELFPAY | PROVIDERS: PCP Nurse Practitioner Family; Visit Provider Internal Medicine | DX: L68.0 Hirsutism (principal); E06.3 Autoimmune thyroiditis; N92.6 Irregular menstruation, unspecified | CPT/HCPCS: 36415; 84146; 84403; 84439; 84443 ==